=== PATIENT | female | born 1980 | race Caucasian/White ===

== ENCOUNTER 2021-05-11 13:01 | Inpatient (IN) | payer MEDICARE, BC ==
[~2021-05-11] VITALS: Ht 175.3 cm; Wt 128.8 kg
--- NOTE | ~2021-05-11 | EMS ---
[facility] [address] [place] [address] EMS Patient Care Report Name: DESEAN TIWARI Room: [address] IN [facility]#: [id number] Admission: 05/11/21 Attend Phys: Meagan Medellin MD Discharge: 05/12/21 Date of : 80 Report #: [id number] THIS REPORT FOR: //name// Report Transmitted: 05/12/2021 19:22 EMS Care Summary [facility] [place] Incident [id number] @ 05/11/2021 12:10 Incident Location [address] [place], [place] [id number] Patient DESEAN TIWARI Female, 40 Years 1980 Patient Address [address] [place] [address] Patient History Acute kidney failure, unspecified,Type 1 diabetes mellitus,Hypertension (HTN),Hyperlipidemia, Patient Allergies , Patient Medications Metoprolol, Nifedipine, Humalog, Lantus, Furosemide, Atorvastatin, Chief Complaint Vomiting Disposition Transported No Lights/[place] Dispatch Reason Abdominal Pain/Problems Transported To [facility] Narrative [facility] DISPATCHED TO ABOVE ADDRESS FOR A 40 YEAR OLD FEMALE COMPLAINING OF ABDOMINAL PAIN, BACK PAIN, NAUSEA, AND VOMITING. STARTING LOCATION IS [employer] AND [facility] [employer]. 319 ARRIVES ON SCENE WITHOUT INCIDENT. PT PRESENTS 40 [facility] [address] [facility] [place] [address] EMS Patient Care Report Name: DESEAN TIWARI Room: [address] IN [facility]#: [id number] Admission: 05/11/21 Attend Phys: Meagan Medellin MD Discharge: 05/12/21 Date of : 80 Report #: [id number] YEAR OLD CHRONICALLY ILL FEMALE WITH HISTORY OF KIDNEY FAILURE COMPLAINING OF ABDOMINAL PAIN, FLANK PAIN, NAUSEA, AND VOMITING. PT STATES HAVING PERITONEAL DIALYSIS PORT SURGICALLY REPLACED IN AT [facility]. SINCE SURGERY, SHE HAS HAD intermittent EPIGASTRIC PAIN DESCRIBED AN "ACHE". THIS MORNING, PT STATES HAVING LEFT FLANK PAIN, NAUSEA, AND VOMITING. SHE ESTIMATES VOMITING APPROXIMATELY 5-6 TIMES WITHOUT NOTING BLOOD OR OTHER ABNORMALITY IN EMESIS. PT DENIES CHEST PAIN, SHORTNESS OF AIR, SYNCOPE, ALTERED MENTATION, FEVER, CHILLS, DIARRHEA, OR OTHER RECENT ILLNESS/INFECTION. PT PERFORMS PERITONEAL DIALYSIS NIGHTLY, WITH LAST SESSION BEING LAST NIGHT WITHOUT COMPLICATIONS. PT FOUND SITTING UPRIGHT ON COUCH IN FRONT LIVING ROOM. PT IS ALERT/ORIENTED, BREATHING REGULAR/NON-LABORED, SKIN PINK/WARM/DRY. VITALS INDICATE HYPERTENSION, ALTHOUGH PT STATES THIS LEVEL CAN BE NORMAL IF SHE IS EXPERIENCING PAIN OR IN A HEALTHCARE SETTING. ALL ASSESSMENTS AND TREATMENTS NOTED. FIELD IMPRESSION OF FLANK PAIN AND VOMITING. PT REQUESTS AMBULANCE TRANSPORT TO [facility] FOR FURTHER EVALUATION AND TREATMENT OF HER CONDITION. PT ASSISTED TO STAND, AMBULATE TO FRONT [facility] WHERE COT IS WAITING, PIVOT/SIT ON COT IN POSITION OF COMFORT. ALL SEATBELTS APPLIED, COT TAKEN TO AMBULANCE AND LOADED WITHOUT INCIDENT. TRANSPORT NON-EMERGENT TO [facility] PER PT REQUEST. EN ROUTE, VASCULAR ACCESS AND ZOFRAN ADMINISTERED FOR NAUSEA. ONGOING ASSESSMENTS NOTED WITHOUT DECLINE IN CONDITION. 319 ARRIVES AT DESTINATION WITHOUT INCIDENT. PT SIGNS NOTICE OF PRIVACY RIGHTS. COT UNLOADED TAKEN TO ED 6, WHERE PT TRANSFERS TO ED BED VIA STAND AND PIVOT. VERBAL REPORT GIVEN, AND ED RN SIGNS TRANSFER OF CARE. 319 CLEAR AND AVAILABLE. ALICIA BOX, EMT-P. Initial Vitals @12:38Pain: 03/13, @12:54Pain: 03/13, @12:23SpO2: 100, @12:38SpO2: 99, @12:54SpO2: 100, @12:27 @12:54 @12:23P: 84,R: 18,BP: 198/132, @12:38P: 84,R: 18,BP: 200/120, @12:54P: 86,R: 16,BP: 206/124, @12:23GCS: 15, @12:38GCS: 15, @12:54GCS: 15, Assessments @12:15MENTAL:SKIN:HEENT:LUNG SOUNDS:ABDOMEN:PELVIS//GI:EXTREMITIES:PULSE:NEURO: [place] [address] EMS Patient Care Report Name: DESEAN TIWARI Room: [address] IN [facility].R.#: [id number] Admission: 05/11/21 Attend Phys: Meagan Medellin MD Discharge: 05/12/21 Date of : 80 Report #: [id number] Procedures @12:50Ondansetron - 4.000 Milligrams (mg) - Intravenous (IV)Response: Improved@12:48 cc () Site: Antecubital-RightResponse: UnchangedSucceeded@12:273-Lead ECGResponse: UnchangedSucceeded@12:543-Lead ECGResponse: UnchangedSucceeded Timeline 12:10,Call Received 12:10,Dispatch Notified 12:10,Psap Call 12:10,Dispatched 12:11,En Route 12:14,On Scene 12:15,At Patient 12:23,BP: / M,PULSE: ,RR: R,SPO2: 100 Ox,ETCO2: ,BG: ,PAIN: ,GCS: , 12:23,BP: 198/132 M,PULSE: 84,RR: 18 R,SPO2: Ox,ETCO2: ,BG: ,PAIN: ,GCS: , 12:23,BP: / M,PULSE: ,RR: R,SPO2: Ox,ETCO2: ,BG: ,PAIN: ,GCS: 15, 12:27,3-Lead ECG,Response: UnchangedSucceeded, 12:27,BP: / M,PULSE: ,RR: R,SPO2: Ox,ETCO2: ,BG: ,PAIN: ,GCS: , 12:37,Depart Scene 12:38,BP: / M,PULSE: ,RR: R,SPO2: Ox,ETCO2: ,BG: ,PAIN: 8,GCS: , 12:38,BP: / M,PULSE: ,RR: R,SPO2: 99 Ox,ETCO2: ,BG: ,PAIN: ,GCS: , 12:38,BP: 200/120 M,PULSE: 84,RR: 18 R,SPO2: Ox,ETCO2: ,BG: ,PAIN: ,GCS: , 12:38,BP: / M,PULSE: ,RR: R,SPO2: Ox,ETCO2: ,BG: ,PAIN: ,GCS: 15, 12:48, cc Site: Antecubital-Right,Response: UnchangedSucceeded, 12:50,Ondansetron - 4.000 Milligrams (mg) - Intravenous (IV),Response: Improved 12:54,3-Lead ECG,Response: UnchangedSucceeded, 12:54,BP: / M,PULSE: ,RR: R,SPO2: Ox,ETCO2: ,BG: ,PAIN: 8,GCS: , 12:54,BP: / M,PULSE: ,RR: R,SPO2: 100 Ox,ETCO2: ,BG: ,PAIN: ,GCS: , 12:54,BP: / M,PULSE: ,RR: R,SPO2: Ox,ETCO2: ,BG: ,PAIN: ,GCS: , 12:54,BP: 206/124 M,PULSE: 86,RR: 16 R,SPO2: Ox,ETCO2: ,BG: ,PAIN: ,GCS: , 12:54,BP: / M,PULSE: ,RR: R,SPO2: Ox,ETCO2: ,BG: ,PAIN: ,GCS: 15, 12:59,At Destination 13:10,Call Closed Disclaimer v1.1 Copyright 2020 [employer] This EMS Care Summary contains data elements from the applicable legal record (which may be displayed differently). It is designed to provide pertinent information for the following purposes: continuity of care, clinical quality, and state data reporting. The complete legal record is available to ED staff and administrators of the receiving hospital in [employer]'s Patient Tracker. All data is provided "as is."
[2021-05-11 13:14] VITALS: BP 218/116
[2021-05-11 13:33] LABS: ABSOLUTE BASOPHILS 0.1 thou/uL (0.0-0.2); ABSOLUTE EOSINOPHILS 0.3 thou/uL (0.0-0.7); ABSOLUTE LYMPHOCYTES 0.7 thou/uL (0.8-5.3); ABSOLUTE MONOCYTES 0.6 thou/uL (0.0-1.2); ABSOLUTE NEUTROPHILS 5.7 thou/uL (1.6-8.1); BASOPHILS 1.1 %; EOSINOPHILS 4.6 %; HEMATOCRIT 29.9 % (37.0-47.0); HEMOGLOBIN 9.9 gm/dL (12.0-15.0); LYMPHOCYTES 9.3 %; MCH 31.3 pg (26.0-34.0); MCV 95.1 fL (80.0-100.0); MONOCYTES 7.9 %; MPV 7.6 fl. (7.2-11.1); NUCLEATED RBCS 0 /100WBC; PLATELET COUNT* 157 thou/uL (150-400); POLYS 77.1 %; RBC 3.15 mil/uL (4.20-5.00); RDW-CV 14.1 % (10.5-14.5); WBC 7.4 thou/uL (4.0-11.0)
[2021-05-11 13:39] LABS: CALCIUM 11.1 mg/dL (8.5-10.1); CREATININE 15.3 mg/dL (0.6-1.3)
[2021-05-11] MEDS ORDERED: NIFEDIPINE10 MG PO (13:40)
[2021-05-11] MEDS ORDERED: LANTUS100 UNIT/M SUBQ (13:40)
[2021-05-11] MEDS ORDERED: METOPROLOL SUCC50 MG PO (13:40)
[2021-05-11] MEDS ORDERED: HUMALOG100 UNIT/1 SUBQ (13:40)
[2021-05-11] MEDS ORDERED: LIPITOR 20 MG T20 M1 PO (13:40)
[2021-05-11 13:44] LABS: ALBUMIN 2.4 g/dL (3.4-5.0); TOTAL BILIRUBIN 0.7 mg/dL (<0.1-1.0); TOTAL PROTEIN 6.6 g/dL (6.4-8.2)
--- NOTE | 2021-05-11 14:42 | EKG ---
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: : 1980 Requested By: Miguel Buchanan Order Number: [id number] MD: Dwayne Doyle Measurements Intervals [place] Rate: 85 P: 54 SD: 195 QRS: 36 QRSD: 107 T: 116 QT: 406 QTc: 483 Interpretive Statements Sinus rhythm Left atrial enlargement Nonspecific T abnormalities, lateral leads Borderline prolonged QT interval No previous ECG available for comparison Electronically Signed On 05-11-2021 14:41:56 CDT by Dwayne Doyle [email or web address] <ELECTRONICALLY SIGNED> By: Dwayne Doyle MD, [facility] 05/11/21 1441 1311 10 Dwayne Doyle MD, [facility] /EPI
[2021-05-11 18:16] VITALS: BP 192/128
[2021-05-11] MEDS ORDERED: HUMULIN N100 UNIT/1 SUBQ (19:45)
[2021-05-11 20:00] VITALS: BP 133/99
[2021-05-12] VITALS: BP 194/98
[2021-05-12 04:00] VITALS: BP 190/90
[2021-05-12 04:39] LABS: HEMOGLOBIN 9.7 gm/dL (12.0-15.0); MCH 31.8 pg (26.0-34.0); MCHC 33.3 g/dL (28.0-37.0); MCV 95.6 fL (80.0-100.0); RBC 3.04 mil/uL (4.20-5.00); RDW-CV 14.5 % (10.5-14.5); WBC 7.1 thou/uL (4.0-11.0)
[2021-05-12 05:12] LABS: CALCIUM 10.3 mg/dL (8.5-10.1); POTASSIUM 4.2 mmol/L (3.5-5.1)
[2021-05-12 08:00] VITALS: BP 212/114
[2021-05-12 09:51] VITALS: BP 190/99
[2021-05-12 11:52] VITALS: BP 190/99
== END 2021-05-12 12:10 | disposition home or self-care (01) | DRG 562 ==
LOC: M.ERS 13:01 → M.TBA-ER 13:39 → M.2W 18:26
PROVIDERS: Family Medicine; ADMIT Family Medicine; ATTEND Family Medicine
DX: S39.012A Strain of muscle, fascia and tendon of lower back, initial encounter (principal); N18.6 End stage renal disease; I12.0 Hypertensive chronic kidney disease with stage 5 chronic kidney disease or end stage renal disease; Z68.41 Body mass index [BMI] 40.0-44.9, adult; E87.1 Hypo-osmolality and hyponatremia; R11.2 Nausea with vomiting, unspecified; E78.00 Pure hypercholesterolemia, unspecified; H54.61 Unqualified visual loss, right eye, normal vision left eye; E78.5 Hyperlipidemia, unspecified; D64.9 Anemia, unspecified; E66.01 Morbid (severe) obesity due to excess calories; E10.22 Type 1 diabetes mellitus with diabetic chronic kidney disease; Z20.822 Contact with and (suspected) exposure to COVID-19; Z79.4 Long term (current) use of insulin; Z79.899 Other long term (current) drug therapy; Z88.8 Allergy status to other drugs, medicaments and biological substances; Z99.2 Dependence on renal dialysis

== ENCOUNTER 2021-05-22 16:18 | Emergency (ER) | payer MEDICARE, BC ==
[~2021-05-22] VITALS: Ht 175.3 cm; Wt 115.7 kg
[~2021-05-22 16:18] MED LIST: HUMALOG100 UNIT/1 SUBQ; HUMULIN N100 UNIT/1 SUBQ; LANTUS100 UNIT/M SUBQ; LIPITOR 20 MG T20 M1 PO; METOPROLOL SUCC50 MG PO; NIFEDIPINE10 MG PO
[2021-05-22] MEDS ORDERED: FUROSEMIDE 40 M40 MG PO (16:26)
[2021-05-22] MEDS ORDERED: PROCARDIA XL90 MG PO (16:26)
[2021-05-22] MEDS ORDERED: PROTONIX40 M2 PO (16:26)
[2021-05-22] MEDS ORDERED: VELPHORO500 MG PO (16:27)
[2021-05-22] MEDS ORDERED: SENSIPAR90 MG PO (16:28)
[2021-05-22] MEDS ORDERED: NORVASC5 MG PO (17:23)
[2021-05-22 18:23] VITALS: BP 194/99
== END 2021-05-22 18:24 | disposition home or self-care (01) ==
LOC: M.ERS 16:18
DX: I10 Essential (primary) hypertension (principal); E10.9 Type 1 diabetes mellitus without complications; E78.00 Pure hypercholesterolemia, unspecified; Z79.4 Long term (current) use of insulin; Z79.899 Other long term (current) drug therapy; Z88.8 Allergy status to other drugs, medicaments and biological substances

== ENCOUNTER 2021-05-29 18:52 | Emergency (ER) | payer MEDICARE, BC ==
[~2021-05-29] VITALS: Ht 175.3 cm; Wt 68.0 kg
[~2021-05-29 18:52] MED LIST changes: +FUROSEMIDE 40 M40 MG PO; +NORVASC5 MG PO; +PROCARDIA XL90 MG PO; +PROTONIX40 M2 PO; +SENSIPAR90 MG PO; +VELPHORO500 MG PO
[2021-05-29 19:21] LABS: ABSOLUTE BASOPHILS 0.1 thou/uL (0.0-0.2); ABSOLUTE EOSINOPHILS 0.4 thou/uL (0.0-0.7); ABSOLUTE LYMPHOCYTES 1.1 thou/uL (0.8-5.3); ABSOLUTE MONOCYTES 0.7 thou/uL (0.0-1.2); ABSOLUTE NEUTROPHILS 7.3 thou/uL (1.6-8.1); BASOPHILS 0.6 %; EOSINOPHILS 4.7 %; HEMATOCRIT 37.7 % (37.0-47.0); HEMOGLOBIN 12.3 gm/dL (12.0-15.0); LYMPHOCYTES 11.6 %; MCH 30.9 pg (26.0-34.0); MCHC 32.6 g/dL (28.0-37.0); MCV 94.8 fL (80.0-100.0); MONOCYTES 7.4 %; NUCLEATED RBCS 0 /100WBC; PLATELET COUNT* 178 thou/uL (150-400); POLYS 75.7 %; RBC 3.97 mil/uL (4.20-5.00); RDW-CV 15.6 % (10.5-14.5); WBC 9.6 thou/uL (4.0-11.0)
[2021-05-29 19:25] LABS: CALCIUM 11.4 mg/dL (8.5-10.1); CREATININE 13.1 mg/dL (0.6-1.3); POTASSIUM 3.6 mmol/L (3.5-5.1)
[2021-05-29 19:29] LABS: ALBUMIN 2.6 g/dL (3.4-5.0); TOTAL BILIRUBIN 0.6 mg/dL (<0.1-1.0); TOTAL PROTEIN 7.6 g/dL (6.4-8.2)
[2021-05-29] MEDS ORDERED: ZOFRAN ODT4 MG PO (21:03)
[2021-05-29 22:10] VITALS: BP 197/103
== END 2021-05-29 22:10 | disposition home or self-care (01) ==
LOC: M.ERS 18:52
PROVIDERS: Nurse Practitioner Family
DX: R11.2 Nausea with vomiting, unspecified (principal); E10.9 Type 1 diabetes mellitus without complications; I10 Essential (primary) hypertension; E78.00 Pure hypercholesterolemia, unspecified; Z79.899 Other long term (current) drug therapy; Z88.2 Allergy status to sulfonamides

== ENCOUNTER 2021-09-15 12:23 | Emergency (ER) | payer MEDICARE ==
[~2021-09-15] VITALS: Ht 175.3 cm; Wt 90.7 kg
--- NOTE | ~2021-09-15 | EMS ---
[address] [address] EMS Patient Care Report Name: DESEAN [facility]WARI [id number] Admission: 09/15/21 Attend Phys: Discharge: Date of : 80 Report #: [id number] THIS REPORT FOR: //name// Report Transmitted: 09/15/2021 20:18 EMS Care Summary [place] Incident [id number] @ 09/15/2021 11:33 Incident Location [address] [place] [address] Patient DESEAN TIWARI Female, 41 Years 1980 Patient Address [address] [place] [address] Patient History Acute kidney failure, unspecified,Type 1 diabetes mellitus,Hyperlipidemia,Legal blindness, as defined in [place], Patient Allergies , Patient Medications Lantus, Chief Complaint Pain Disposition Transported No Lights/[place] Dispatch Reason Sick Person Transported To [facility] Narrative [facility] DISPATCHED TO THE ADDRESS MENTIONED ABOVE FOR REPORTS OF A 41 YEAR OLD FEMALE COMPLAINING OF SOA AND PAIN IN HER NECK AND SHOULDER ON THE LEFT. [facility] RESPONDED EMERGENT WITH DUE REGARD WITH NO ISSUES TO BE NOTED. UPON ARRIVAL [address] [address] EMS Patient Care Report Name: DESEAN TIWARI Room: [facility]#: [id number] Admission: 09/15/21 Attend Phys: Discharge: Date of : 80 Report #: [id number] CONTACT MADE WITH THE PATIENTS SON. WHO DIRECTED US TO THE PATIENT. UPON ENTRY INTO THE HOME THE PATIENT WAS LOCATED SEATED IN A RECLINER IN THE LIVING ROOM. HOME CONDITION IS NOTED TO BE VERY CLUTTERED WITH CHILDREN'S TOYS ALL OVER THE PLACE ALONG WITH RANDOM MEDICATION BOTTLES THROUGHOUT THE TWO END TABLES THAT WERE PLACED NEAR THE RECLINER. DIALYSIS MACHINE LOCATED IN THE LIVING ROOM OF THE RESIDENCE. PATIENT IS AWAKE AND TALKING TO CREW UPON INITIAL CONTACT. INTRODUCTIONS COMPLETED. PATIENT STATES: "I AM A DIALYSIS PATIENT AND I DO DIALYSIS NIGHTLY. LAST NIGHT I THINK I PULLED TOO MUCH FLUID OFF AND NOW IM DEHYDRATED. MY SHOULDER AND NECK HAVE BEEN CRAMPING AND IN SEVERE PAIN ALL DAY TODAY. I JUST CANT STAND IT. I HAVE TAKEN ONE OF MY OXYCODONE WITH NO RELIEF." PATIENT VITALS, DEMOGRAPHIC INFORMATION, AND 12 LEAD OBTAINED PRIOR TO MOVING THE PATIENT. AFTER COMPLETION OF THE 12 LEAD AND VITALS PATIENT ASSISTED TO A STANDING POSITION AND WAS ABLE TO AMBULATE WITH THE ASSISTANCE OF HER WALKER AND 2 STAFF MEMBERS OUT TO THE COT WHICH WAS PLACED BY THE FRONT DOOR. PATIENT SEATED ON COT AND SECURED WITH ALL SAFETY BELTS AND COVERED WITH BLANKETS BEFORE TRANSPORTING. PATIENT TRANSPORTED ON COT OUT TO THE BACK OF THE UNIT AND LIFTED INSIDE. ONCE SECURED INSIDE PATIENT VITALS AND IV ACCESS WERE OBTAINED. ALL TREATMENTS COMPLETED DOCUMENTED. 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 DURING TRANSPORT PATIENT VITALS MONITORED WITH NO CHANGE IN PATIENT CONDITION. PHYSICAL ASSESSMENT COMPLETED WITH NOTHING REMARKABLE FOUND UNLESS OTHERWISE NOTED. REPORT GIVEN TO [facility] VIA RADIO CHILD WELFARE CASEWORKER. UPON ARRIVAL PATIENT WAS TRANSPORTED OUT OF THE BACK OF THE UNIT AND INTO THE FACILITY. PATIENT AND EMS DIRECTED TO ROOM 6. UPON ENTRY INTO THE ROOM PATIENT WAS RELEASED FROM SAFETY BELTS AND ASSISTED INTO THE ROOM AND SEATED ON THE BED. PATIENT MADE COMFORTABLE WITH PILLOWS AND BLANKETS PRIOR TO LEAVING. SIGNATURES OBTAINED FROM BOTH THE PATIENT AND NURSING STAFF. VERBAL REPORT GIVEN TO NURSE. PATIENT IS NOW IN THE CARE OF [facility]. [facility] 321 CLEAR. Initial Vitals @11:39Pain: 02/10, @12:15Pain: 02/10, @11:40SpO2: 100, @11:59SpO2: 100, @12:11SpO2: 97, @11:42 @11:54 @11:40P: 95,R: 20,BP: 184/93, @11:53P: 104,R: 18,BP: 205/116, @11:56P: 99,R: 18,BP: 202/102, @12:11P: 83,R: 20,BP: 207/86, @11:40GCS: 15, @11:53GCS: 15, @11:56GCS: 15, @12:11GCS: 15, [place] [address] EMS Patient Care Report Name: DESEAN TIWARI [facility] [id number] Admission: 09/15/21 Attend Phys: Discharge: Date of : 80 Report #: [id number] Assessments @11:39MENTAL:SKIN:HEENT:LUNG SOUNDS:ABDOMEN:PELVIS//GI:EXTREMITIES:PULSE:NEURO: Impression Dehydration Procedures @11:54 IV Therapy - cc () Site: Antecubital-Right Response: UnchangedSucceeded @11:42 12-Lead ECG Response: UnchangedSucceeded @11:54 3-Lead ECG Response: UnchangedSucceeded Timeline 00:01,Call Received 11:33,Dispatch Notified 11:33,Psap Call 11:33,Dispatched 11:34,En Route 11:36,On Scene 11:39,At Patient 11:39,BP: / M,PULSE: ,RR: R,SPO2: Ox,ETCO2: ,BG: ,PAIN: 7,GCS: , 11:40,BP: / M,PULSE: ,RR: R,SPO2: 100 Ox,ETCO2: ,BG: ,PAIN: ,GCS: , 11:40,BP: 184/93 M,PULSE: 95,RR: 20 R,SPO2: Ox,ETCO2: ,BG: ,PAIN: ,GCS: , 11:40,BP: / M,PULSE: ,RR: R,SPO2: Ox,ETCO2: ,BG: ,PAIN: ,GCS: 15, 11:42,12-Lead ECG,Response: UnchangedSucceeded, 11:42,BP: / M,PULSE: ,RR: R,SPO2: Ox,ETCO2: ,BG: ,PAIN: ,GCS: , 11:53,BP: 205/116 M,PULSE: 104,RR: 18 R,SPO2: Ox,ETCO2: ,BG: ,PAIN: ,GCS: , 11:53,BP: / M,PULSE: ,RR: R,SPO2: Ox,ETCO2: ,BG: ,PAIN: ,GCS: 15, 11:54,IV Therapy - cc Site: Antecubital-Right,Response: UnchangedSucceeded, 11:54,3-Lead ECG,Response: UnchangedSucceeded, 11:54,BP: / M,PULSE: ,RR: R,SPO2: Ox,ETCO2: ,BG: ,PAIN: ,GCS: , 11:56,BP: 202/102 M,PULSE: 99,RR: 18 R,SPO2: Ox,ETCO2: ,BG: ,PAIN: ,GCS: , 11:56,BP: / M,PULSE: ,RR: R,SPO2: Ox,ETCO2: ,BG: ,PAIN: ,GCS: 15, 11:59,BP: / M,PULSE: ,RR: R,SPO2: 100 Ox,ETCO2: ,BG: ,PAIN: ,GCS: , 11:59,Depart Scene 12:11,BP: / M,PULSE: ,RR: R,SPO2: 97 Ox,ETCO2: ,BG: ,PAIN: ,GCS: , 12:11,BP: 207/86 M,PULSE: 83,RR: 20 R,SPO2: Ox,ETCO2: ,BG: ,PAIN: ,GCS: , 12:11,BP: / M,PULSE: ,RR: R,SPO2: Ox,ETCO2: ,BG: ,PAIN: ,GCS: 15, 12:15,BP: / M,PULSE: ,RR: R,SPO2: Ox,ETCO2: ,BG: ,PAIN: 7,GCS: , 12:19,At Destination 12:37,Call Closed Disclaimer v1.1 Copyright 2021 [employer] This EMS Care Summary contains data elements from [place] [address] EMS Patient Care Report Name: DESEAN TIWARI RAFFAELE Room: [facility]#: [id number] Admission: 09/15/21 Attend Phys: Discharge: Date of : 80 Report #: [id number] (which may be displayed differently). It is designed to provide pertinent information for the following purposes: continuity of care, clinical quality, and state data reporting. The complete legal record is available to ED staff and administrators of the receiving hospital in [facility]'s Patient Tracker. All data is provided "as is."
[~2021-09-15 12:23] MED LIST changes: +ZOFRAN ODT4 MG PO
[2021-09-15] MEDS ORDERED: LANTUS SUBQ (12:33)
[2021-09-15 12:41] LABS: ABSOLUTE BASOPHILS 0.1 thou/uL (0.0-0.2); ABSOLUTE EOSINOPHILS 0.4 thou/uL (0.0-0.7); ABSOLUTE LYMPHOCYTES 1.7 thou/uL (0.8-5.3); ABSOLUTE MONOCYTES 0.8 thou/uL (0.0-1.2); EOSINOPHILS 4.6 %; HEMATOCRIT 44.1 % (37.0-47.0); HEMOGLOBIN 14.9 gm/dL (12.0-15.0); LYMPHOCYTES 18.9 %; MCH 32.4 pg (26.0-34.0); MCHC 33.7 g/dL (28.0-37.0); MCV 96.2 fL (80.0-100.0); MONOCYTES 9.3 %; MPV 8.3 fl. (7.2-11.1); NUCLEATED RBCS 0 /100WBC; PLATELET COUNT* 291 thou/uL (150-400); POLYS 66.2 %; RBC 4.58 mil/uL (4.20-5.00); RDW-CV 14.7 % (10.5-14.5); WBC 9.1 thou/uL (4.0-11.0)
[2021-09-15 12:44] LABS: CALCIUM 9.6 mg/dL (8.5-10.1); CREATININE 9.3 mg/dL (0.6-1.3)
[2021-09-15 12:51] LABS: ALBUMIN 1.7 g/dL (3.4-5.0); TOTAL BILIRUBIN 0.8 mg/dL (<0.1-1.0); TOTAL PROTEIN 7.7 g/dL (6.4-8.2)
[2021-09-15] MEDS ORDERED: FLEXERIL PO (13:47)
[2021-09-15 13:58] VITALS: BP 107/75
== END 2021-09-15 13:58 | disposition home or self-care (01) ==
LOC: M.ERS 12:23
PROVIDERS: Family Medicine
DX: E86.0 Dehydration (principal); R52 Pain, unspecified; I10 Essential (primary) hypertension; E10.9 Type 1 diabetes mellitus without complications; E78.00 Pure hypercholesterolemia, unspecified; F12.90 Cannabis use, unspecified, uncomplicated; Z98.890 Other specified postprocedural states; Z79.4 Long term (current) use of insulin; Z79.891 Long term (current) use of opiate analgesic; Z79.899 Other long term (current) drug therapy; Z88.8 Allergy status to other drugs, medicaments and biological substances

== ENCOUNTER 2021-09-25 16:36 | Inpatient (IN) | payer MEDICARE ==
[~2021-09-25] VITALS: Ht 175.3 cm; Wt 99.8 kg
--- NOTE | ~2021-09-25 | EMS ---
[address] [address] EMS Patient Care Report Name: DESEAN TIWARI Room: [address] IN [facility]#: [id number] Admission: 09/25/21 Attend Phys: Vianney Davis MD Discharge: Date of : 80 Report #: [id number] THIS REPORT FOR: //name// Report Transmitted: 09/25/2021 17:03 EMS Care Summary [place] Incident [id number] @ 09/25/2021 15:49 Incident Location [address] [id number] Patient DESEAN TIWARI Female, 41 Years 1980 Patient Address [address] [id number] Patient History Acute kidney failure, unspecified,Type 1 diabetes mellitus,Hyperlipidemia,Hypertension (HTN),Bariatric surgery status, Patient Allergies , Patient Medications Metoprolol, Nifedipine, Cetamide, Humalog, Lantus, Pantoprazole, Chief Complaint Nausea Disposition Transported No Lights/[place] Dispatch Reason Unconscious/Fainting Transported To [facility] Narrative [id number] DISPATCHED TO A LOCAL RESIDENCE FOR DEHYDRATION AND LOW BLOOD PRESSURE. ON SCENE, EMS AND IFD WERE MET BY A 41 YOF COMPLAINING OF WEAKNESS AND NAUSEA. FEMALE STATES SHE ARRIVED HOME FROM AN APPOINTMENT AT HER DIALYSIS CLINIC WHERE [address] [address] EMS Patient Care Report Name: DESEAN TIWARI Room: [address] IN [facility]#: [id number] Admission: 09/25/21 Attend Phys: Vianney Davis MD Discharge: Date of : 80 Report #: [id number] SHE HAD ROUTINE BLOOD DRAWS DONE WHEN SHE SUDDENLY FELT TOO WEAK TO GET UP HER STAIRS AND NAUSEOUS. PT STATES SHE DIDNT HAVE THE STRENGTH TO GET ANY FARTHER ONCE ENTERING HER HOME, STATES SHE FEELS DIZZY AND MIGHT PASS OUT IF SHE STOOD UP. PT STATES SHE ALSO FEELS THAT SHE IS DEHYDRATED. PT STATES SHE HAD VOMITED ONCE BUT CLAIMS IT WAS PRIOR TO LEAVING FOR HER APPOINTMENT. DURING FURTHER ASSESSMENT, PT STATES SYMPTOMS BEGAN THIS MORNING STATING SHE WAS UNABLE TO TAKE HER medications BECAUSE SHE "COULD NOT KEEP ANYTHING DOWN." PT STATES SYMPTOMS HAVE BEEN INTERMITTENT THROUGHOUT THE DAY AND NOT A SUDDEN ONSET. PT STATES SHE HAS FELT THIS IN THE PAST AND STATES SHE WAS SEEN AT THE HOSPITAL WHERE SHE WAS TREATED FOR DEHYDRATION. PT STATES SINCE HAVING A GASTRIC SLEEVE PROCEDURE DONE IN JULY, SHE HAS BEEN HAVING COMPLICATIONS ON AND OFF. PT ALSO ADVISES SHE DOES PERITONEAL DIALYSIS AT HOME AND HAS NOT HAD ANY COMPLICATIONS WITH TREATMENTS. PT DENIES CHEST PAIN, ABDOMINAL PAIN, DIARRHEA, HEADACHE, FEVER, CHILLS. UPON ARRIVAL, PT WAS FOUND SITTING UPRIGHT ON THE STAIRS LEADING TO THE UPPER LEVEL OF THE HOME. PT WAS AWAKE ALERT AND ORIENTED, AIRWAY WAS PATENT AND CLEAR, BREATHING WAS NORMAL AND REGULAR - NON LABORED, CIRCULATION WAS TACHYCARDIC AND REGULAR, PHYSICAL ASSESSMENT NOTED. BSI, PT CONTACT, PT AMBULATED WITH ASSISTANCE TO [facility] OUTSIDE FRONT DOOR AND SECURED, PT LOADED INTO UNIT AND LOCKED IN PLACE, VITALS AND TREATMENTS NOTED, TRANSPORT INITIATED, PT REASSESSED, PT REMAINED STABLE WITH SLIGHT IMPROVEMENT OF NAUSEA AND NO FURTHER DETERIORATION, AT DESTINATION PT WAS UNLOADED FROM UNIT AND WHEELED INTO ED, PT MOVED FROM [facility] TO ED BED VIA SHEET TRANSFER, VERBAL REPORT GIVEN AND PT CARE TRANSFERRED TO RN AT RECEIVING FACILITY. TIANA RETURNED TO SERVICE WITHOUT INCIDENT. Initial Vitals @15:57SpO2: 97, @16:07SpO2: 100, @16:22SpO2: 100, @16:31SpO2: 100, @16:01 @15:57P: 116,R: 18,BP: 152/94, @16:07P: 107,R: 18,BP: 161/81, @16:22P: 105,R: 18,BP: 130/86, @16:31P: 102,R: 18,BP: 154/106, @15:57GCS: 15, @16:07GCS: 15, @16:22GCS: 15, @16:31GCS: 15, @15:54 @16:10Glucose: 235, Assessments @15:52MENTAL:SKIN:HEENT:LUNG SOUNDS:ABDOMEN:PELVIS//GI:EXTREMITIES:PULSE:NEURO: [place] [address] EMS Patient Care Report Name: ERNESTINEMEGHANADESEAN RAFFAELE Room: [place] [address] ADM IN .R.#: [id number] Admission: 09/25/21 Attend Phys: Vianney Davis MD Discharge: Date of : 80 Report #: [id number] Impression Nausea Procedures @16:09 IV Therapy - cc () Site: Antecubital-Left Response: UnchangedFailed @16:01 12-Lead ECG Response: UnchangedSucceeded Timeline 15:47,Dispatch Notified 15:47,Psap Call 15:49,Dispatched 15:49,En Route 15:51,On Scene 15:52,At Patient 15:54,BP: / M,PULSE: ,RR: R,SPO2: Ox,ETCO2: ,BG: ,PAIN: ,GCS: , 15:57,BP: / M,PULSE: ,RR: R,SPO2: 97 Ox,ETCO2: ,BG: ,PAIN: ,GCS: , 15:57,BP: 152/94 M,PULSE: 116,RR: 18 R,SPO2: Ox,ETCO2: ,BG: ,PAIN: ,GCS: , 15:57,BP: / M,PULSE: ,RR: R,SPO2: Ox,ETCO2: ,BG: ,PAIN: ,GCS: 15, 16:00,Call Received 16:01,12-Lead ECG,Response: UnchangedSucceeded, 16:01,BP: / M,PULSE: ,RR: R,SPO2: Ox,ETCO2: ,BG: ,PAIN: ,GCS: , 16:07,BP: / M,PULSE: ,RR: R,SPO2: 100 Ox,ETCO2: ,BG: ,PAIN: ,GCS: , 16:07,BP: 161/81 M,PULSE: 107,RR: 18 R,SPO2: Ox,ETCO2: ,BG: ,PAIN: ,GCS: , 16:07,BP: / M,PULSE: ,RR: R,SPO2: Ox,ETCO2: ,BG: ,PAIN: ,GCS: 15, 16:09,IV Therapy - cc Site: Antecubital-Left,Response: UnchangedFailed, 16:10,BP: / M,PULSE: ,RR: R,SPO2: Ox,ETCO2: ,B,PAIN: ,GCS: , 16:11,Depart Scene 16:22,BP: / M,PULSE: ,RR: R,SPO2: 100 Ox,ETCO2: ,BG: ,PAIN: ,GCS: , 16:22,BP: 130/86 M,PULSE: 105,RR: 18 R,SPO2: Ox,ETCO2: ,BG: ,PAIN: ,GCS: , 16:22,BP: / M,PULSE: ,RR: R,SPO2: Ox,ETCO2: ,BG: ,PAIN: ,GCS: 15, 16:31,BP: / M,PULSE: ,RR: R,SPO2: 100 Ox,ETCO2: ,BG: ,PAIN: ,GCS: , 16:31,BP: 154/106 M,PULSE: 102,RR: 18 R,SPO2: Ox,ETCO2: ,BG: ,PAIN: ,GCS: , 16:31,BP: / M,PULSE: ,RR: R,SPO2: Ox,ETCO2: ,BG: ,PAIN: ,GCS: 15, 16:32,At Destination 16:48,Call Closed Disclaimer v1.1 Copyright 2021 [employer] This EMS Care Summary contains data elements from the applicable legal record (which may be displayed differently). It is designed to provide pertinent information for the following purposes: continuity of care, clinical quality, and state data reporting. The complete legal record is available to ED staff and administrators of the receiving hospital in [employer]'s Patient Tracker. All data is provided "as is."
[~2021-09-25 16:36] MED LIST changes: +FLEXERIL PO; +LANTUS SUBQ
[2021-09-25 16:41] VITALS: BP 95/74
[2021-09-25 17:42] LABS: ABSOLUTE BASOPHILS 0.1 thou/uL (0.0-0.2); ABSOLUTE EOSINOPHILS 0.3 thou/uL (0.0-0.7); ABSOLUTE LYMPHOCYTES 1.2 thou/uL (0.8-5.3); ABSOLUTE NEUTROPHILS 8.4 thou/uL (1.6-8.1); BASOPHILS 0.5 %; EOSINOPHILS 2.7 %; HEMATOCRIT 41.2 % (37.0-47.0); HEMOGLOBIN 13.7 gm/dL (12.0-15.0); LYMPHOCYTES 10.7 %; MCH 32.4 pg (26.0-34.0); MCHC 33.2 g/dL (28.0-37.0); MCV 97.5 fL (80.0-100.0); MONOCYTES 9.5 %; MPV 8.1 fl. (7.2-11.1); NUCLEATED RBCS 0 /100WBC; PLATELET COUNT* 274 thou/uL (150-400); POLYS 76.6 %; RBC 4.22 mil/uL (4.20-5.00); RDW-CV 15.6 % (10.5-14.5); WBC 10.9 thou/uL (4.0-11.0)
[2021-09-25 17:59] LABS: CALCIUM 9.4 mg/dL (8.5-10.1); CREATININE 9.7 mg/dL (0.6-1.3)
[2021-09-25 18:04] LABS: POTASSIUM 2.1 mmol/L (3.5-5.1)
[2021-09-25 18:14] LABS: ALBUMIN 1.4 g/dL (3.4-5.0); TOTAL BILIRUBIN 0.6 mg/dL (<0.1-1.0); TOTAL PROTEIN 6.4 g/dL (6.4-8.2)
[2021-09-25 20:18] VITALS: BP 158/96
[2021-09-25 20:20] VITALS: BP 144/74
[2021-09-26 02:27] VITALS: BP 159/81
[2021-09-26 02:34] LABS: HEMATOCRIT 37.2 % (37.0-47.0); HEMOGLOBIN 12.3 gm/dL (12.0-15.0); MCH 31.7 pg (26.0-34.0); MCV 96.1 fL (80.0-100.0); MPV 8.1 fl. (7.2-11.1); RBC 3.87 mil/uL (4.20-5.00); RDW-CV 15.7 % (10.5-14.5); WBC 12.9 thou/uL (4.0-11.0)
[2021-09-26 02:43] LABS: ALBUMIN 1.2 g/dL (3.4-5.0); CALCIUM 8.8 mg/dL (8.5-10.1); CREATININE 9.9 mg/dL (0.6-1.3); MAGNESIUM 1.5 mg/dL (1.8-2.4); TOTAL BILIRUBIN 0.6 mg/dL (<0.1-1.0); TOTAL PROTEIN 5.6 g/dL (6.4-8.2)
[2021-09-26 02:44] LABS: POTASSIUM 2.4 mmol/L (3.5-5.1)
[2021-09-26 05:56] VITALS: BP 157/76
[2021-09-26 08:17] VITALS: BP 161/94
--- NOTE | 2021-09-26 09:15 | EKG ---
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1980 Requested By: Miguel Buchanan Order Number: [id number] MD: Emiliano Barfield Measurements Intervals [place] Rate: 117 P: 87 IA: 130 QRS: 70 QRSD: 109 T: 262 QT: 343 QTc: 479 Interpretive Statements Sinus tachycardia Probable LVH with secondary repol abnrm ST depr, consider ischemia, inferior leads Compared to ECG 05/11/2021 13:11:54 Possible ischemia now present Sinus rhythm no longer present Electronically Signed On 09-26-2021 8:58:43 PORTAL ADMINISTRATOR by Emiliano Barfield [email or web address] <ELECTRONICALLY SIGNED> By: Emiliano Barfield MD, FAC 09/26/21 0858 00 00 Emiliano Barfield MD, [facility] /EPI
[2021-09-26 12:13] VITALS: BP 166/77
[2021-09-26 16:54] VITALS: BP 166/86
[2021-09-26 20:00] VITALS: BP 152/77
[2021-09-27 01:44] VITALS: BP 132/67
[2021-09-27 04:17] LABS: HEMATOCRIT 34.8 % (37.0-47.0); HEMOGLOBIN 11.6 gm/dL (12.0-15.0); MCH 32.1 pg (26.0-34.0); MCHC 33.3 g/dL (28.0-37.0); MCV 96.6 fL (80.0-100.0); MPV 7.9 fl. (7.2-11.1); RBC 3.61 mil/uL (4.20-5.00); WBC 11.1 thou/uL (4.0-11.0)
[2021-09-27 04:36] LABS: ALBUMIN 1.2 g/dL (3.4-5.0); CALCIUM 8.8 mg/dL (8.5-10.1); CREATININE 9.8 mg/dL (0.6-1.3); TOTAL BILIRUBIN 0.6 mg/dL (<0.1-1.0); TOTAL PROTEIN 5.3 g/dL (6.4-8.2)
[2021-09-27 04:38] LABS: POTASSIUM 2.3 mmol/L (3.5-5.1)
[2021-09-27 05:50] VITALS: BP 146/73
[2021-09-27 07:38] VITALS: BP 180/89
--- NOTE | 2021-09-27 09:47 | CON ---
[address] [address] CONSULTATION Name: DESEAN TIWARI Room: [address] IN ..#: [id number] Admission: 09/25/21 Attend Phys: Vianney Davis MD Discharge: Date of : 80 Report #: [id number] THIS REPORT FOR: cc: Rahda Burk Maggie M. DO Arakelov, Alexandr V. MD ~ DATE OF CONSULTATION: 09/26/2021 REQUESTING PHYSICIAN: Magnus Church DO REASON FOR CONSULTATION: End-stage renal disease, providing with peritoneal dialysis. HISTORY OF PRESENT ILLNESS: The patient is a 41-year-old female with medical history significant for end-stage renal disease, on peritoneal dialysis for last two and a half years, also has diabetes mellitus, hypertension, obesity. She had gastric sleeve surgery done in July 2021 and after that she had a lot of complications with nausea and unable to tolerate food. She came in because she could not keep anything down for the last several days. She was found volume depleted. She was given IV fluids. Today, she feels somewhat better. LABORATORY DATA: From today reveal sodium 136, potassium 2.4, chloride 99, carbon dioxide 25, BUN 19, creatinine 9.9, blood sugar 327. Her hemoglobin 12.3. SOCIAL HISTORY: No tobacco. No alcohol abuse. She is on disability. 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 FAMILY HISTORY: Positive for diabetes. REVIEW OF SYSTEMS: Positive for symptoms as I mentioned earlier, otherwise all systems reviewed and negative. PHYSICAL EXAMINATION: GENERAL: Awake, alert, oriented x 4. VITAL SIGNS: Blood pressure 160/94, but was as low as 95/74 on admission, heart rate 99, afebrile. HEENT: Neck is fatty. LUNGS: Clear. CARDIOVASCULAR: Regular rate. ABDOMEN: Soft. Peritoneal catheter is in place. No tenderness over the tunnel. No discharge at the insertion site. EXTREMITIES: Lower extremities with +1 edema. ASSESSMENT: [place] [address] CONSULTATION Name: DESEAN TIWARI Room: [address]#: [id number] Admission: 09/25/21 Attend Phys: Vianney Davis MD Discharge: Date of : 80 Report #: [id number] 1. End-stage renal disease, on peritoneal dialysis. 2. Diabetes mellitus type 2. 3. Hypertension. 4. Nausea, vomiting post-gastric sleeve surgery. PLAN: We will resume her peritoneal dialysis. We will use 1.5% Dianeal for now. She needs better blood sugar control. We will follow her labs. <ELECTRONICALLY SIGNED> By: Martin Tovar MD 09/27/21 [id number] mis Neves
[2021-09-27 12:05] VITALS: BP 162/99
[2021-09-27 18:20] VITALS: BP 191/94
[2021-09-27 20:00] VITALS: BP 122/74
[2021-09-28 01:44] VITALS: BP 148/70
[2021-09-28 05:20] LABS: ALBUMIN 1.4 g/dL (3.4-5.0); CREATININE 9.8 mg/dL (0.6-1.3); MAGNESIUM 1.9 mg/dL (1.8-2.4); TOTAL BILIRUBIN 0.8 mg/dL (<0.1-1.0); TOTAL PROTEIN 6.3 g/dL (6.4-8.2)
[2021-09-28 05:39] LABS: HEMATOCRIT 50.7 % (37.0-47.0); MCHC 33.1 g/dL (28.0-37.0); MCV 96.6 fL (80.0-100.0); MPV 8.3 fl. (7.2-11.1); RBC 5.25 mil/uL (4.20-5.00); RDW-CV 16.1 % (10.5-14.5)
[2021-09-28 05:42] LABS: HEMOGLOBIN 16.8 gm/dL (12.0-15.0)
[2021-09-28 05:57] VITALS: BP 174/90
[2021-09-28 05:59] LABS: POTASSIUM 2.1 mmol/L (3.5-5.1)
[2021-09-28 08:05] VITALS: BP 185/93
[2021-09-28 13:58] VITALS: BP 185/93
[2021-09-28 14:58] VITALS: BP 185/93
== END 2021-09-28 14:58 | disposition home or self-care (01) | DRG 73 ==
LOC: M.ERS 16:36 → M.2W 17:22 → M.TBA-ER 17:22 → M.2W 20:20
PROVIDERS: Family Medicine; ADMIT Internal Medicine; ATTEND Internal Medicine
PROC: 3E1M39Z Irrigation of Peritoneal Cavity using Dialysate, Percutaneous Approach (ICD-10-PCS; principal; 2021-09-26)
PROC: 3E1M39Z Irrigation of Peritoneal Cavity using Dialysate, Percutaneous Approach (ICD-10-PCS; 2021-09-27)
DX: E10.43 Type 1 diabetes mellitus with diabetic autonomic (poly)neuropathy (principal); N18.6 End stage renal disease; E44.1 Mild protein-calorie malnutrition; I12.0 Hypertensive chronic kidney disease with stage 5 chronic kidney disease or end stage renal disease; R18.8 Other ascites; K31.84 Gastroparesis; Z20.822 Contact with and (suspected) exposure to COVID-19; D73.5 Infarction of spleen; E78.00 Pure hypercholesterolemia, unspecified; H54.61 Unqualified visual loss, right eye, normal vision left eye; E86.0 Dehydration; F12.90 Cannabis use, unspecified, uncomplicated; I25.10 Atherosclerotic heart disease of native coronary artery without angina pectoris; E10.22 Type 1 diabetes mellitus with diabetic chronic kidney disease; E78.5 Hyperlipidemia, unspecified; E87.6 Hypokalemia; E10.319 Type 1 diabetes mellitus with unspecified diabetic retinopathy without macular edema; Z68.32 Body mass index [BMI] 32.0-32.9, adult; Z99.2 Dependence on renal dialysis; Z98.84 Bariatric surgery status; Z79.899 Other long term (current) drug therapy; Z88.8 Allergy status to other drugs, medicaments and biological substances; Z83.3 Family history of diabetes mellitus; Z82.49 Family history of ischemic heart disease and other diseases of the circulatory system; Z72.89 Other problems related to lifestyle; Z91.19 Patient's noncompliance with other medical treatment and regimen

== ENCOUNTER → 2021-10-01 | Emergency (ER) | payer MEDICARE ==
[~2021-10-01] VITALS: Ht 162.6 cm; Wt 81.7 kg
--- NOTE | ~2021-10-01 | EKG ---
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
--- NOTE | ~2021-10-01 | EMS ---
[address] [address] EMS Patient Care Report Name: DESEAN TIWARI [id number] Admission: 10/01/21 Attend Phys: Discharge: Date of : 80 Report #: [id number] THIS REPORT FOR: //name// Report Transmitted: 10/01/2021 20:35 EMS Care Summary [facility] [place] Incident [id number] @ 10/01/2021 18:28 Incident Location [address] [place] [address] Patient DESEAN TIWARI Female, 41 Years 1980 Patient Address [address] [place] [address] Patient History Acute kidney failure, unspecified,Type 1 diabetes mellitus,Hyperlipidemia,Bariatric surgery status,End Stage Renal Disease (ESRD),Hypertension (HTN),Other chronic pain, Patient Allergies , Patient Medications , Atorvastatin, Nifedipine, Pantoprazole, Sensipar, Ondansetron, Lantus, Chief Complaint Weakness Disposition Transported No Lights/Fargo Dispatch Reason Abdominal Pain/Problems Transported To [facility] Narrative 321 DISPATCHED NONEMERGENT TO RESIDENCE FOR A 41F WITH NAUSEA/VOMITING/WEAKNESS. 321 ARRIVED ON SCENE WITHOUT INCIDENT. UPON ARRIVAL [address] [address] EMS Patient Care Report Name: DESEAN TIWARI [id number] Admission: 10/01/21 Attend Phys: Discharge: Date of : 80 Report #: [id number] ON SCENE, PT WAS FOUND SITTING IN HER RECLINER IN THE LIVINGROOM. EMS IS FAMILIAR WITH THIS PT AND HER HISTORY. PT IS AWAKE, ALERT AND ORIENTED, AND ABLE TO TALK TO EMS. PT TALKS A LITTLE BIT TO EMS ABOUT HER CURRENT COMPLAINT, BUT THEN BEGINS TO DRY HEAVE VERY FREQUENTLY. SHE STATES SHE WAS SEEN IN [facility] FOR "THE SAME THING" AND DISCHARGED ON FRIDAY. SHE STATES THAT SHE WAS STILL PRETTY NAUSEOUS AND HAVING EPISODES OF VOMITING WHEN DISCHARGED. SHE STATES THAT WHEN SHE WAS DISCHARGED, HER BLOOD GLUCOSE LEVELS HAD NORMALIZED. PT STATES THAT FRIDAY AFTERNOON SHE BEGAN TO FEEL PRETTY ILL, THEN WORSENED THROUGHOUT THE EVENING. SHE STATES SHE HAS BEEN THIS ILL SINCE FRIDAY NIGHT, BUT THOUGHT SHE WOULD GET BETTER, THEREFORE PUT OFF CALLING. SHE STATES SHE HAS BEEN VOMITING AND DRY HEAVING, UNABLE TO KEEP ANYTHING DOWN. SHE STATES HER BGL WAS IN THE HIGH 400S AND SHE TOOK 10 UNITS OF HER FAST ACTING INSULIN. SHE STATES THAT SHE RECENTLY HAD THE GASTRIC SLEEVE SURGERY AND THAT HER STOMACH WAS HURTING FROM CONSTANTLY VOMITING. SHE STATES SHE HAS BEEN COMPLIANT WITH HER TREATMENTS AND MEDICATIONS. PT STATES SHE IS EXTREMELY WEAK AND WILL NEED HELP TO THE COT. THE HOUSE IS A SPLIT LEVEL HOUSE WITH APPROXIMATELY 6 STAIRS, AND 3 STEPS OUTSIDE. EMT WHEN TO RETRIEVE THE STAIRCHAIR FOR EXTRICATION. EMT ATTEMPTS TO MOVE THE AMBULANCE CLOSER TO THE HOUSE, HOWEVER, THE GROUND IS TOO SOFT. IFD IS CALLED FOR A LIFT ASSIST FROM THE PORCH TO THE AMBULANCE. PT IS ASSISTED FROM HER CHAIR TO THE STAIRCHAIR AT HER OWN PACE. SHE IS SECURED TO THE STAIRCHAIR VIA SEATBELTS AND INSTRUCTED TO KEEP HER HANDS IN HER LAP. PT IS TAKEN DOWN THE STAIRS VIA THE STAIRCHAIR TRACKS AND THEN CARRIED OFF OF THE PORCH. PT STANDS AND PIVOTS TO THE COT. PT SITS ON THE COT AND IS SECURED VIA SEATBELTS AND SIDERAILS. EMS AND FIRE CARRIED THE COT TO THE AMBULANCE DUE TO THE GROUND CONDITIONS. PT IS LOADED INTO THE AMBULANCE AND TREATMENTS AND INTERVENTIONS ARE EXECUTED. PT STATES THAT SHE ALWAYS HAS IMPROVEMENT WITH [facility]. EMS HAS A VERY DIFFICULT TIME OBTAINING IV ACCESS, BUT GETS ACCESS WITH THE SECOND ATTEMPT. [facility] IS ADMINISTERED AND TRANSPORT BEGAN. DURING TRANSPORT, PT WOULD OCCASIONALLY ASK TO BE SAT UP MORE OR LAID DOWN MORE. EMS ADJUSTED PT REQUESTED AND WAS ABLE TO PROVIDE COMFORT. PT STATED SHE WAS STARTING TO HAVE LESS NAUSEA, BUT STILL FELT VERY ILL. PT APPEARED TO BE VERY DEFEATED AND TIRED. SHE FREQUENTLY PUT HER HEAD DOWN AND APPEARED TO BE SAD WELL. PT REACHED OUT TO EMS'S HAND A FEW TIMES AND EMS PROVIDED EMOTIONAL SUPPORT. PT'S VITALS WERE MONITORED ENROUTE AND REMAINED STABLE. AT THE END OF THE TRANSPORT, PT BEGAN TO DRY HEAVE AND RETCH AGAIN, BUT UNABLE TO VOMIT ANYTHING. PT STATED THAT SHE HAS NEVER HAD THIS HAPPEN SO QUICKLY AFTER [facility] ADMINISTRATION. UPON ARRIVING AT THE HOSPITAL, PT WAS UNLOADED FROM THE AMBULANCE AND WHEELED INTO ER 10. PT WAS STILL TRYING TO VOMIT AT THIS TIME. PT WAS LIFTED FROM THE COT TO THE BED VIA SHEET LIFT. PT REPORT WAS GIVEN TO THE RN WHO SIGNED ACCEPTING PT. PT STATED SHE WAS UNABLE TO SIGN AT THIS TIME DUE TO HER CURRENT CONDITION. TRANSFER OF CARE WAS OFFICIAL AT THIS TIME. Initial Vitals @18:40Pain: 02/10, @18:59SpO2: 99, [address] [place] [address] EMS Patient Care Report Name: DESEAN TIWARI Room: [facility]#: [id number] Admission: 10/01/21 Attend Phys: Discharge: Date of : 80 Report #: [id number] @19:02SpO2: 96, @19:08SpO2: 95, @19:13SpO2: 99, @19:28SpO2: 100, @18:59 @18:59P: 120,R: 22,BP: 171/92, @19:22P: 111,R: 22,BP: 188/83, @19:31P: 115,R: 22,BP: 167/114, @18:59GCS: 15, @19:22GCS: 15, @19:31GCS: 15, @18:35 @19:10Glucose: 446, Assessments @18:35MENTAL:SKIN:HEENT:LUNG SOUNDS:ABDOMEN:PELVIS//GI:EXTREMITIES:PULSE:NEURO: Impression Generalized Weakness Procedures @19:12 Ondansetron - 4.000 Milligrams (mg) - Intravenous (IV) Response: Improved @19:08 IV Therapy - cc () Site: Antecubital-Right Response: UnchangedSucceeded @19:00 IV Therapy - cc () Site: Antecubital-Left Response: UnchangedFailed @19:08 Blood Draw - cc () Response: UnchangedSucceeded @18:59 3-Lead ECG Response: UnchangedSucceeded Timeline 15:00,Call Received 18:28,Dispatch Notified 18:28,Psap Call 18:28,Dispatched 18:28,En Route 18:34,On Scene 18:35,At Patient 18:35,BP: / M,PULSE: ,RR: R,SPO2: Ox,ETCO2: ,BG: ,PAIN: ,GCS: , 18:40,BP: / M,PULSE: ,RR: R,SPO2: Ox,ETCO2: ,BG: ,PAIN: 7,GCS: , 18:59,3-Lead ECG,Response: UnchangedSucceeded, 18:59,BP: / M,PULSE: ,RR: R,SPO2: 99 Ox,ETCO2: ,BG: ,PAIN: ,GCS: , 18:59,BP: / M,PULSE: ,RR: R,SPO2: Ox,ETCO2: ,BG: ,PAIN: ,GCS: , 18:59,BP: 171/92 M,PULSE: 120,RR: 22 R,SPO2: Ox,ETCO2: ,BG: ,PAIN: ,GCS: , 18:59,BP: / M,PULSE: ,RR: R,SPO2: Ox,ETCO2: ,BG: ,PAIN: ,GCS: 15, 19:00,IV Therapy - cc Site: Antecubital-Left,Response: UnchangedFailed, 19:02,BP: / M,PULSE: ,RR: R,SPO2: 96 Ox,ETCO2: ,BG: ,PAIN: ,GCS: , [place] [address] EMS Patient Care Report Name: DESEAN TIWARI [facility]#: [id number] Admission: 10/01/21 Attend Phys: Discharge: Date of : 80 Report #: [id number] 19:08,IV Therapy - cc Site: Antecubital-Right,Response: UnchangedSucceeded, 19:08,Blood Draw - cc Site: ,Response: UnchangedSucceeded, 19:08,BP: / M,PULSE: ,RR: R,SPO2: 95 Ox,ETCO2: ,BG: ,PAIN: ,GCS: , 19:10,BP: / M,PULSE: ,RR: R,SPO2: Ox,ETCO2: ,B,PAIN: ,GCS: , 19:12,Depart Scene 19:12,Ondansetron - 4.000 Milligrams (mg) - Intravenous (IV),Response: Improved 19:13,BP: / M,PULSE: ,RR: R,SPO2: 99 Ox,ETCO2: ,BG: ,PAIN: ,GCS: , 19:22,BP: 188/83 M,PULSE: 111,RR: 22 R,SPO2: Ox,ETCO2: ,BG: ,PAIN: ,GCS: , 19:22,BP: / M,PULSE: ,RR: R,SPO2: Ox,ETCO2: ,BG: ,PAIN: ,GCS: 15, 19:28,BP: / M,PULSE: ,RR: R,SPO2: 100 Ox,ETCO2: ,BG: ,PAIN: ,GCS: , 19:31,BP: 167/114 M,PULSE: 115,RR: 22 R,SPO2: Ox,ETCO2: ,BG: ,PAIN: ,GCS: , 19:31,BP: / M,PULSE: ,RR: R,SPO2: Ox,ETCO2: ,BG: ,PAIN: ,GCS: 15, 19:34,At Destination 19:44,Call Closed Disclaimer v1.1 Copyright 2021 [employer] This EMS Care Summary contains data elements from the applicable legal record (which may be displayed differently). It is designed to provide pertinent information for the following purposes: continuity of care, clinical quality, and state data reporting. The complete legal record is available to ED staff and administrators of the receiving hospital in [employer]'s Patient Tracker. All data is provided "as is."
[2021-10-01 20:09] LABS: BE -3.3 mmol/L (-2 to +3); PCO2 VENOUS 31.9 mmHg (41.0-51.0)
[2021-10-01 20:16] LABS: HEMATOCRIT 43.4 % (37.0-47.0); HEMOGLOBIN 14.2 gm/dL (12.0-15.0); MCHC 32.8 g/dL (28.0-37.0); MCV 97.7 fL (80.0-100.0); MPV 8.3 fl. (7.2-11.1); NUCLEATED RBCS 0 /100WBC; PLATELET COUNT* 298 thou/uL (150-400); RBC 4.44 mil/uL (4.20-5.00); RDW-CV 16.6 % (10.5-14.5)
[2021-10-01 21:00] VITALS: BP 174/93
[2021-10-01 21:12] LABS: ABSOLUTE LYMPHOCYTES 0.4 thou/uL (0.8-5.3); ABSOLUTE MONOCYTES 0.4 thou/uL (0.0-1.2); ABSOLUTE NEUTROPHILS 11.3 thou/uL (1.6-8.1); PLATELET ESTIMATE ADEQUATE
[2021-10-01 21:13] LABS: LARGE PLATELETS OCCASIONAL; MACROCYTES 1+
[2021-10-01 21:17] LABS: ANION GAP 19 mmol/L (7-16); BUN 21 mg/dL (7-18); CALCIUM 9.7 mg/dL (8.5-10.1); CHLORIDE 95 mmol/L (98-107); CO2 22 mmol/L (21-32); CREATININE 10.1 mg/dL (0.6-1.3); GLUCOSE 417 mg/dL (70-99); SODIUM 136 mmol/L (136-145)
[2021-10-01 21:19] LABS: POTASSIUM 2.4 mmol/L (3.5-5.1)
[2021-10-01 21:28] LABS: ALBUMIN 1.5 g/dL (3.4-5.0); ALKALINE PHOSPHATASE 162 U/L (46-116); LIPASE 41 U/L (73-393); MAGNESIUM 1.8 mg/dL (1.8-2.4); SGOT 15 U/L (15-37); SGPT 18 U/L (30-65); TOTAL BILIRUBIN 0.9 mg/dL (<0.1-1.0); TOTAL PROTEIN 6.4 g/dL (6.4-8.2)
== END ==
LOC: M.ERS 19:37
PROVIDERS: Student in an Organized Health Care Education/Training Program
DX: R11.2 Nausea with vomiting, unspecified (principal); Z20.822 Contact with and (suspected) exposure to COVID-19; E87.6 Hypokalemia; I12.0 Hypertensive chronic kidney disease with stage 5 chronic kidney disease or end stage renal disease; E10.22 Type 1 diabetes mellitus with diabetic chronic kidney disease; N18.6 End stage renal disease; E78.00 Pure hypercholesterolemia, unspecified; Z99.2 Dependence on renal dialysis; Z91.15 Patient's noncompliance with renal dialysis; Z98.890 Other specified postprocedural states; Z79.4 Long term (current) use of insulin; Z79.899 Other long term (current) drug therapy; Z88.8 Allergy status to other drugs, medicaments and biological substances